=== PATIENT | male | born 1990 | race Caucasian/White ===

== ENCOUNTER 2017-03-07 16:40 | Observation (INO) | payer MEDICAID, SELFPAY ==
--- NOTE | 2017-03-07 17:10 | HP.PCM_ITS ---
Problem List (1) Opiate withdrawal Status: Acute (2) Anxiety Status: Chronic History of Present Illness Date of Admission: 03/07/17 Chief Complaint: heroin withdrawal The patient is a 26 year old M who presents through the [facility] program for acute heroin withdrawal. Patient is abusing IV heroin about 1 g per day, his last use was last night about 7 PM. He has been using on off and on for about 7 years and has been through detox twice before. His current withdrawal symptoms include some nausea with vomiting this morning, diarrhea, anxiety, muscle aches. He has been injecting primarily into his right arm he has no injection site injuries at this time. No fevers or chills. He does admit to occasionally using cocaine. He smokes about a pack a day and is requesting nicotine gum. He does not use benzodiazepines. He does occasionally use alcohol. [] Past Medical History Past Medical History (Chronic Problems): Chronic Problems Anxiety (Chronic) Surgical History: no surgical history Psychiatric History: Anxiety, Depression Lives: With Family Smoking Status: Heavy Smoker (>10/day) Tobacco Use: Cigarettes - 1 pack per day Alcohol: Occasional Drugs: Cocaine, Heroin - *Family History Maternal History Items: No pertinent history Paternal History Items: - - Cirrhosis Review of Systems Constitutional: Denies: Chills, Fever, Weight Change HEENT: Denies: Head Aches, Sinus Congestion, Sinus Drainage Cardiovascular: Denies: Chest Pain, Palpitations Respiratory: Denies: Cough, Shortness of breath at rest, Sputum production Gastrointestinal: Reports: Diarrhea, Nausea, Vomiting. Denies: Abdominal Pain Genitourinary: Denies: Dysuria Musculoskeletal: Reports: - - Generalized muscle aches. Denies: Joint Pain, Joint Tenderness Skin: Denies: Rash, Wounds Neurological: Denies: Numbness, Tingling, Focal weakness Psychiatric: Reports: Anxiety. Denies: Depression, Homicidal Ideations, Suicidal Ideations Hematologic/ Lymphatic: Denies: Easy Bruising, Easy Bleeding VTE Information - Inpt Only VTE Present on Admission: No VTE Mechan Device Prophylaxis: None VTE Pharm Prophylaxis ordered?: No Reason prophylaxis not ordered:: Procedure Not Indicated Patient Problems: Active and Suspected Problems Opiate withdrawal (Acute) - Physical Exam General: Alert, Oriented x3, Cooperative HEENT: Atraumatic, PERRLA, EOMI, Normocephalic Neck: Supple, No JVD, Negative Carotid Bruits Lungs: Clear to auscultation, Normal air movement Cardiovascular: Regular rate, No murmurs Abdomen: Bowel Sounds Present, Soft, Non Tender Extremities: No edema, Capillary Refill Less than 3 Seconds Skin: No rashes, No breakdown Musculoskeletal: No Tenderness to Palpation of Joints or Extremities Neurological: Cranial nerves II-XII grossly intact Psych/Mental Status: Normal Affect, Appropriate, Alert and oriented to time, place, person, mood and affect Assessment/Plan Active and Suspected Problems Opiate withdrawal (Acute) 1. Acute opiate withdrawal-IV heroin abuse, approximately 1 g per day. Last use 7 PM last night. Current withdrawal symptoms include nausea, vomiting, diarrhea, anxiety, and muscle aches. Begin medical stabilization protocol. HepC panel per pt request. No acute injection site injuries on exam today. 2. Co abuse of cocaine, occasional alcohol use 3. Nicotine abuse - Nicotine gum prn 4. Anxiety - continue home meds
[2017-03-07 17:13] VITALS: BMI 23.1
[2017-03-07] MEDS: Buprenorphine HCl 2 MG TAB.SUBL SL (17:30)
[2017-03-07] MEDS: cloNIDine HCl 0.1 MG Tablet 0.2 MG PO (17:30)
[2017-03-07] MEDS: chlordiazePOXIDE 25 MG Capsule PO ×2 (17:30→21:01)
[2017-03-07] MEDS: Acetaminophen 325 MG Tablet 650 MG PO (17:30)
[2017-03-07] MEDS: Dicyclomine 10 MG Capsule 20 MG PO (17:31)
[2017-03-07] MEDS: Methocarbamol 750 MG Tablet PO (17:31)
[2017-03-07 17:34] VITALS: BMI 23.2
[2017-03-07 18:21] VITALS: BP 93/57; PULSE 67; RESP 16; TEMP 36.4
[2017-03-07] MEDS: Loperamide 2 MG Capsule PO (21:00)
[2017-03-07 21:09] VITALS: BP 102/62; PULSE 55; RESP 18; TEMP 37
[2017-03-07] MEDS: Gabapentin 600 MG Tablet PO (21:55)
[2017-03-07] MEDS: Nicotine Polacrilex 2 MG GUM PO (21:59)
[2017-03-08] MEDS: Buprenorphine HCl 2 MG TAB.SUBL SL ×3 (01:30→17:16)
[2017-03-08] MEDS: Methocarbamol 750 MG Tablet PO ×4 (01:35→20:33)
[2017-03-08] MEDS: Carbidopa/Levodopa 25/100 Tablet PO (01:35)
[2017-03-08] MEDS: Nicotine Polacrilex 2 MG GUM PO ×5 (01:37→17:18)
--- NOTE | 2017-03-08 01:42 | NURSING ---
pt refused librium wasted with yeyorn as witness. [facility] did not ask for charge rns badge scan.
--- NOTE | 2017-03-08 01:43 | NURSING ---
witnessed 25mg Librium waste with Pushpa RN. Pt refused med, med rinsed down sink. [facility] did not ask for this RN to scan badge.
[2017-03-08 01:44] VITALS: BP 102/68; PULSE 52; RESP 16; TEMP 36.6
[2017-03-08 05:26] VITALS: BP 98/77; PULSE 48; RESP 16; TEMP 36.6
[2017-03-08] MEDS: Gabapentin 600 MG Tablet PO ×2 (07:38→17:16)
[2017-03-08] MEDS: FLUoxetine 10 MG Capsule 30 MG PO (07:38)
[2017-03-08 07:41] VITALS: BP 105/66; PULSE 57; RESP 16; TEMP 36.6; O2SAT 98
--- NOTE | 2017-03-08 08:03 | PCM.PN.HOSP ---
Patient Problems: Active and Suspected Problems Opiate withdrawal (Acute) Vitals/I&O's: Vital Signs Temp Pulse Resp BP Pulse Ox 98 F 57 16 105/66 98 03/08/17 07:41 03/08/17 07:41 03/08/17 07:41 03/08/17 07:41 03/08/17 07:41 Oxygen Delivery Method Room Air Weight: 75.3 kg Body Mass Index (BMI) 23.1 Intake and Output for Last 24 Hours 03/06/17 03/07/17 03/08/17 23:59 23:59 23:59 Intake Total 550 300 Balance 550 300 Laboratory Results 03/07/17 17:47: Hepatitis C Ab (EIA) Pending, Hepatitis C Comment Pending Current Medications Acetaminophen (Tylenol) 650 mg PO Q4H PRN PRN PRN Reason: Temp>99.1F Last Admin: 03/07/17 17:30 Dose: 650 mg Buprenorphine HCl (Buprenorphine Hcl) 4 mg SL Q8H BHARTI PRN Reason: Taper Stop: 03/10/17 20:59 Last Admin: 03/08/17 01:30 Dose: 4 mg Carbidopa/Levodopa (Sinemet) 1 tablet PO Q8H PRN PRN PRN Reason: RESTLESSNESS Last Admin: 03/08/17 01:35 Dose: 1 tablet Chlordiazepoxide (Librium) 25 mg PO Q4 BHARTI Stop: 03/08/17 14:01 Last Admin: 03/08/17 07:39 Dose: Not Given Chlordiazepoxide (Librium) 25 mg PO Q6H PRN PRN PRN Reason: Mod-Sev Anxiety (score 2-3/3) Clonidine (Catapres) 0.1 mg PO Q2H PRN PRN Reason: Hot/Cold Sweats or Anxiety Dicyclomine HCl (Bentyl) 20 mg PO Q6H PRN PRN PRN Reason: Abdomnial Discomfort Last Admin: 03/07/17 17:31 Dose: 20 mg Fluoxetine HCl (Prozac) 30 mg PO DAILY [facility] Last Admin: 03/08/17 07:38 Dose: 30 mg Gabapentin (Neurontin) 600 mg PO BIDCM [facility] Last Admin: 03/08/17 07:38 Dose: 600 mg Hydroxyzine Pamoate (Vistaril) 50 mg PO Q6H PRN PRN PRN Reason: Mild Anxiety (score 1/3) Ibuprofen (Motrin) 800 mg PO Q8H PRN PRN PRN Reason: Mild-Moderate Pain (1-5/10) Loperamide HCl (Imodium) 2 mg PO Q4H PRN PRN PRN Reason: LOOSE STOOLS Last Admin: 03/07/17 21:00 Dose: 2 mg Methocarbamol (Methocarbamol) 750 mg PO 4X/DAY PRN PRN Reason: Muscle Aches Last Admin: 03/08/17 07:38 Dose: 750 mg Nicotine Polacrilex (Rugby Nicotine (Bkc)) 2 mg PO Q2H PRN PRN PRN Reason: Nicotine Craving Last Admin: 03/08/17 01:37 Dose: 2 mg Nutritional Formula (Lactose Free) (Ensure Enlive) 120 ml PO 4X/DAY BHARTI Last Admin: 03/07/17 21:01 Dose: 120 ml Ondansetron HCl (Zofran Odt) 4 mg PO Q6H PRN PRN PRN Reason: NAUSEA Quetiapine Fumarate (Seroquel) 25 mg PO Q6H PRN PRN PRN Reason: Moderate Anxiety (score 2/3) Assessment/Plan Active and Suspected Problems Opiate withdrawal (Acute)
--- NOTE | 2017-03-08 13:19 | CHAPLAIN ---
Type of Pastoral Visit _x__ Initial Visit ___ Follow-up Visit ___ On-call Visit ___ General Patient Visit ___ Spiritual Assessment ___ Family Conference ___ Bereavement ___ Rapid Response ___ Code Blue ___ Other (describe below) Pastoral Care Referral From _x__ Patient ___ Family ___ Nurse ___ Physician ___ Wheel Mill Operator ___ Polisher Balance Screwhead ___ Other (describe below) Sacrament/Intervention _x__ Active listening ___ Anointing ___ Cheondoism ___ Bereavement ___ Communion _x__ [place] exploration ___ _x__ Life review _x__ Prayer ___ Reconciliation ___ Sacrament of Sick _x__ Supportive presence ___ Wedding ___ Other (describe below) Pastoral Comments patient welcomed visit of physician industrial; pt speaks of this as yet another attempt at sobriety; pt offers his own assessment that he needs to have God in his life for him to be successful; pt has had AA before and believes in the Higher Power but asks questions about how to be connected to God; pt has questions about rehab and expresses openness to support; pt has feelings of disappointment with self and having offended his family
--- NOTE | 2017-03-08 13:51 | PCM.PROGNOTE ---
<Jac Núñez - Last Filed: 03/08/17 13:51> Patient Problems: Active and Suspected Problems Opiate withdrawal (Acute) Subjective: Patient reports that his symptoms are well controlled. No vomiting or diarrhea today. He still has some restless legs, generalized muscle aches, and mild anxiety however these have improved since presentation. No fevers or chills. No headaches dizziness lightheadedness or heart racing or palpitations. - Physical Exam General: Alert, Oriented x3, Cooperative HEENT: Atraumatic, PERRLA, EOMI, Normocephalic Neck: Supple, No JVD, Negative Carotid Bruits Lungs: Clear to auscultation, Normal air movement Cardiovascular: Regular rate, No murmurs Abdomen: Bowel Sounds Present, Soft, Non Tender Extremities: No edema, Capillary Refill Less than 3 Seconds Skin: No rashes, No breakdown Musculoskeletal: No Tenderness to Palpation of Joints or Extremities Neurological: Cranial nerves II-XII grossly intact Psych/Mental Status: Normal Affect, Appropriate, Alert and oriented to time, place, person, mood and affect Vital Signs Temp Pulse Resp BP Pulse Ox 98 F 57 16 105/66 98 03/08/17 07:41 03/08/17 07:41 03/08/17 07:41 03/08/17 07:41 03/08/17 07:41 Oxygen Delivery Method Room Air Weight: 75.3 kg Body Mass Index (BMI) 23.1 Intake and Output for Last 24 Hours 03/06/17 03/07/17 03/08/17 23:59 23:59 23:59 Intake Total 550 540 Balance 550 540 Laboratory Tests Past 24 Hrs 03/07/17 17:47 Hepatitis C Ab (EIA) Pending Hepatitis C Comment Pending Assessment/Plan Active and Suspected Problems Opiate withdrawal (Acute) 1. Acute opiate withdrawal-IV heroin abuse. Symptoms are well controlled, current symptoms include restless legs, generalized muscle aches, mild anxiety. Hepatitis C panel drawn per patient request and is pending. 2. Co abuse of cocaine, occasional alcohol use 3. Nicotine abuse - Nicotine gum prn 4. Anxiety - continue home meds <Paintsil,[place] - Last Filed: 03/08/17 14:06> - Physical Exam Vital Signs Temp Pulse Resp BP Pulse Ox 98.2 F 56 18 105/66 98 03/08/17 14:00 03/08/17 14:00 03/08/17 14:00 03/08/17 07:41 03/08/17 07:41 Oxygen Delivery Method Room Air Weight: 75.3 kg Body Mass Index (BMI) 23.1 Intake and Output for Last 24 Hours 03/06/17 03/07/17 03/08/17 23:59 23:59 23:59 Intake Total 550 540 Balance 550 540 Laboratory Tests Past 24 Hrs 03/07/17 17:47 Hepatitis C Ab (EIA) Pending Hepatitis C Comment Pending Assessment/Plan Patient seen and examined independently. Stable vitals. C/o cravings. No nausea or vomiting Will continue per [facility] protocol.
[2017-03-08 14:00] VITALS: BP 114/72; PULSE 56; RESP 18; TEMP 36.8
[2017-03-08] MEDS: chlordiazePOXIDE 25 MG Capsule PO (14:12)
[2017-03-08] MEDS: Dicyclomine 10 MG Capsule 20 MG PO (14:12)
[2017-03-08] MEDS: cloNIDine HCl 0.1 MG Tablet PO (14:12)
[2017-03-08 17:12] VITALS: BP 102/65; PULSE 52; RESP 18; TEMP 36.9
[2017-03-08] MEDS: Ibuprofen 400 MG Tablet 800 MG PO (17:16)
[2017-03-08 20:51] VITALS: BP 101/57; PULSE 52; RESP 16; TEMP 36.6
[2017-03-09] MEDS: Buprenorphine HCl 2 MG TAB.SUBL SL ×3 (01:20→21:15)
[2017-03-09 01:26] VITALS: BP 101/63; PULSE 54; RESP 16; TEMP 36.6
[2017-03-09 06:49] LABS: Absolute Lymphocyte Count 2.85 X10^3/ul (0.83-4.51); Absolute Neutrophil Count 1.2 X10^3/uL (2.0-7.7); Basophil# 0.02 X10^3/uL; Basophil% 0.4 % (0-1); Eosinophil# 0.15 X10^3/uL; Eosinophils% 3.2 % (0-5); Hematocrit 41.3 % (40-54); Hemoglobin 13.7 g/dl (13.0-16.5); Lymphocyte # 2.85 X10^3/ul (4.0); Lymphocyte % 61.3 % (19-41); Mean Corp Hgb Conc 33.2 g/gl (32-36); Mean Corpuscular Hgb 28.5 pg (27.0-32.0); Mean Platelet Vol. 10.4 fl (6.2-12.0); Monocyte# 0.42 X10^3/uL; Neutrophil # 1.21 X10^3/uL (2.7-7.7); Neutrophil % 26.1 % (47-70); Platelet Count 187 K/mm3 (150-450); RBC Distribution Width CV 13.1 % (11.6-14.6); RBC Distribution Width SD 41.1 fl (35.1-43.9); White Blood Count 4.7 K/mm3 (4.4-11.0)
[2017-03-09 06:55] LABS: POSITIVE COUNT NO; POSITIVE DIFFERENTIAL NO; POSITIVE MORPHOLOGY NO
[2017-03-09 07:08] LABS: Anion Gap 4 (5-15); BUN 15 mg/dL (7-18); BUN/Creat Ratio 16.8 RATIO (10-20); Calcium,Total 8.5 mg/dL (8.5-10.1); Chloride 103 mmol/L (98-107); Creatinine, Serum 0.89 mg/dL (0.70-1.30); EST Glomerular Filtration Rate 109 mL/min (>60); Est Glom Filt Rate - Afr Amer 132 mL/min (>60); Estimated Creatinine Clearance 133.96 ml/min; Glucose 87 mg/dL (70-110); Potassium 4.3 mmol/L (3.5-5.1); Sodium Level 139 mmol/L (136-145)
[2017-03-09] MEDS: Nicotine Polacrilex 2 MG GUM PO ×5 (08:07→21:19)
[2017-03-09] MEDS: Gabapentin 600 MG Tablet PO ×2 (08:07→17:05)
[2017-03-09] MEDS: FLUoxetine 10 MG Capsule 30 MG PO (08:09)
[2017-03-09 08:17] VITALS: BP 102/72; PULSE 80; RESP 16; TEMP 36.5; O2SAT 98
[2017-03-09 09:40] LABS: Hep C Antibodies <0.1 s/co ratio (0.0-0.9)
[2017-03-09] MEDS: Methocarbamol 750 MG Tablet PO ×2 (11:21→17:05)
[2017-03-09 11:23] VITALS: BP 104/56; PULSE 63; RESP 16; TEMP 36.8; O2SAT 97
--- NOTE | 2017-03-09 12:36 | PCM.PROGNOTE ---
<Jac Núñez - Last Filed: 03/09/17 12:36> Patient Problems: Active and Suspected Problems Opiate withdrawal (Acute) Subjective: Pt resting comfortably in bed. Only withdrawal sx at this point is BL muscle aches in legs - mild. No further N/V/anxiety/back pain. No racing or skipped beats. Planning DC tomorrow and follow up with [facility], possibly vivitrol as o/p. - Physical Exam General: Alert, Oriented x3, Cooperative HEENT: Atraumatic, PERRLA, EOMI, Normocephalic Neck: Supple, No JVD, Negative Carotid Bruits Lungs: Clear to auscultation, Normal air movement Cardiovascular: Regular rate, No murmurs Abdomen: Bowel Sounds Present, Soft, Non Tender Extremities: No edema, Capillary Refill Less than 3 Seconds Skin: No rashes, No breakdown Musculoskeletal: No Tenderness to Palpation of Joints or Extremities Neurological: Cranial nerves II-XII grossly intact Psych/Mental Status: Normal Affect, Appropriate Vital Signs Temp Pulse Resp BP Pulse Ox 98.3 F 63 16 104/56 97 03/09/17 11:23 03/09/17 11:23 03/09/17 11:23 03/09/17 11:23 03/09/17 11:23 Oxygen Delivery Method Room Air Weight: 75.3 kg Body Mass Index (BMI) 23.1 Intake and Output for Last 24 Hours 03/07/17 03/08/17 03/09/17 23:59 23:59 23:59 Intake Total 550 1040 350 Balance 550 1040 350 Laboratory Tests Past 24 Hrs 03/07/17 03/09/17 03/09/17 17:47 06:36 06:36 WBC 4.7 RBC 4.80 Hgb 13.7 Hct 41.3 MCV 86.0 MCH 28.5 MCHC 33.2 RDW 13.1 RDW Differential 41.1 Plt Count 187 MPV 10.4 Immature Gran % (Auto) 0.000 Neut % (Auto) 26.1 L Lymph % (Auto) 61.3 H Whitley % (Auto) 9.0 Eos % (Auto) 3.2 Baso % (Auto) 0.4 Absolute Neuts (auto) 1.2 L Absolute Lymphs (auto) 2.85 Total Counted Not Reportable Sodium 139 Potassium 4.3 Chloride 103 Carbon Dioxide 32.0 Anion Gap 4 L BUN 15 Creatinine 0.89 Estim Creat Clear Calc 133.96 Est GFR (MDRD) Af Amer 132 Est GFR (MDRD) Non-Af 109 BUN/Creatinine Ratio 16.8 Glucose 87 Calcium 8.5 Hepatitis C Ab (EIA) <0.1 Assessment/Plan Active and Suspected Problems Opiate withdrawal (Acute) 1. Acute opiate withdrawal-IV heroin abuse. Symptoms are well controlled, current symptoms include leg muscle aches. Hepatitis C panel drawn per patient request and is pending. 2. Co abuse of cocaine, occasional alcohol use 3. Nicotine abuse - Nicotine gum prn 4. Anxiety - continue home meds DC planning: DC tomorrow, [facility] for counselling, requesting information for vivitrol. <Paintsil,[place] - Last Filed: 03/09/17 15:50> - Physical Exam Vital Signs Temp Pulse Resp BP Pulse Ox 98.3 F 63 16 104/56 97 03/09/17 11:23 03/09/17 11:23 03/09/17 11:23 03/09/17 11:23 03/09/17 11:23 Oxygen Delivery Method Room Air Weight: 75.3 kg Body Mass Index (BMI) 23.1 Intake and Output for Last 24 Hours 03/07/17 03/08/17 03/09/17 23:59 23:59 23:59 Intake Total 550 1040 350 Balance 550 1040 350 Laboratory Tests Past 24 Hrs 03/07/17 03/09/17 03/09/17 17:47 06:36 06:36 WBC 4.7 RBC 4.80 Hgb 13.7 Hct 41.3 MCV 86.0 MCH 28.5 MCHC 33.2 RDW 13.1 RDW Differential 41.1 Plt Count 187 MPV 10.4 Immature Gran % (Auto) 0.000 Neut % (Auto) 26.1 L Lymph % (Auto) 61.3 H Whitley % (Auto) 9.0 Eos % (Auto) 3.2 Baso % (Auto) 0.4 Absolute Neuts (auto) 1.2 L Absolute Lymphs (auto) 2.85 Total Counted Not Reportable Sodium 139 Potassium 4.3 Chloride 103 Carbon Dioxide 32.0 Anion Gap 4 L BUN 15 Creatinine 0.89 Estim Creat Clear Calc 133.96 Est GFR (MDRD) Af Amer 132 Est GFR (MDRD) Non-Af 109 BUN/Creatinine Ratio 16.8 Glucose 87 Calcium 8.5 Hepatitis C Ab (EIA) <0.1 Hepatitis C Comment Not Reportable Assessment/Plan Patient seen and examined. No new complains apart from cramps in his legs. Exam findings as above Continue current treatment. Will be discharged in am
[2017-03-09] MEDS: chlordiazePOXIDE 25 MG Capsule PO (14:25)
[2017-03-09 17:07] VITALS: BP 111/68; PULSE 50; RESP 16; TEMP 36.8; O2SAT 98
[2017-03-09 21:13] VITALS: BP 120/69; PULSE 63; RESP 16; TEMP 36.9
[2017-03-10 08:53] VITALS: BP 110/80; PULSE 57; RESP 18; TEMP 36.3; O2SAT 100
[2017-03-10] MEDS: Buprenorphine HCl 2 MG TAB.SUBL SL (09:04)
[2017-03-10] MEDS: Methocarbamol 750 MG Tablet PO (09:04)
[2017-03-10] MEDS: Gabapentin 600 MG Tablet PO (09:05)
[2017-03-10] MEDS: FLUoxetine 10 MG Capsule 30 MG PO (09:05)
[2017-03-10] MEDS: Nicotine Polacrilex 2 MG GUM PO (09:10)
[2017-03-10 10:00] VITALS: BP 110/80; PULSE 57; RESP 18; TEMP 36.3
--- NOTE | 2017-03-10 10:07 | PCM.DC ---
- Discharge Diagnoses Current Active Problems: Current Active and Chronic Problems Opiate withdrawal (Acute) Anxiety (Chronic) You will use the following diet at home:: No restrictions Your food should be the consistency of: Regular Your liquids should be the consistency of: Regular/Thin Discharge Activity: Return to Normal Activity Allergies/Adverse Reactions: Allergies Penicillins Adverse Reaction (Verified 03/07/17 17:03) Unknown Medications to take at Discharge Fluoxetine [Prozac] 30 mg PO DAILY 03/07/17 Gabapentin [Neurontin] 600 mg PO BID 03/07/17 Primary Care Physician: Care Physician,No Primary [Primary Care Provider] - Please follow up with your Primary Care Physician in: 1-2 weeks Proposed Discharge Date: 03/10/17
--- NOTE | 2017-03-10 10:13 | DS.PCM_ITS ---
Discharge Date and Diagnosis - Problem List Patient Problems: Active and Suspected Problems Opiate withdrawal (Acute) Date of Admission: 03/07/17 Date of Discharge: 03/10/17 - Primary Discharge Diagnosis Active and Suspected Problems Opiate withdrawal (Acute) Nicotine abuse Cocaine abuse Anxiety / Depression - Secondary Discharge Diagnosis Chronic Problems Anxiety (Chronic) Hospital Course and Treatment Operations: None Procedures: None Summary of Care Provided: Physical exam on day of discharge: General: Resting comfortably NAD Psych: A/Ox3 normal affect HEENT: [place] AT MN Neck: Supple NT CV: RRR no m/t/r/g/h Resp: CTA Abd: [id number] Soft NT no guarding or rigidity Ext: DP2+= no edema Skin: W/D normal turgor Lymph/Heme: No active bleeding or adenopathy Neuro: CN2-12 intact Hospital course: The patient is a 26 year old M IV heroin abuser who also co-abuses cocaine who was admitted to the hospital through [facility] acute opiate withdrawal and medical stabilization. He was treated following the medical stabilization protocol and his symptoms were well-controlled during his stay here. He requested his hepatitis C panel be drawn while here which was done and it was found to be negative. He also smokes a pack per day and was stable with nicotine gum as needed while here. He has a history of anxiety and his home medications were provided, anxiety was well controlled while here. He plans to pursue outpatient Suboxone or Subutex therapy. He had no complaints by the time of discharge, and he was discharged home in stable condition. Discharge Diet: No Restrictions Discharge Activity: Return to Normal Activity Home Medications: Medications to take at Discharge Fluoxetine [Prozac] 30 mg PO DAILY 03/07/17 Gabapentin [Neurontin] 600 mg PO BID 03/07/17 Primary Care Physician: Care Physician,No Primary [Primary Care Provider] - Please follow up with your Primary Care Physician in: 1-2 weeks Disposition: Home Minutes spent on discharge:: 35 Patient Condition:: Stable Meaningful Use Info Meaningful Use Diagnoses (Choose all that apply): None applicable
[2017-03-10 11:39] VITALS: BP 117/75; PULSE 69; RESP 16; TEMP 36.9
== END 2017-03-10 11:55 | disposition home or self-care (01) | DRG 773 ==
LOC: MS2 08-05 08:46
PROVIDERS: Physician Assistant; Admitting Provider Internal Medicine; Visit Provider Internal Medicine
DX: F11.23 Opioid dependence with withdrawal (principal); F17.210 Nicotine dependence, cigarettes, uncomplicated; F41.9 Anxiety disorder, unspecified; F14.10 Cocaine abuse, uncomplicated; F32.9 Major depressive disorder, single episode, unspecified; Z79.899 Other long term (current) drug therapy
CPT/HCPCS: 36415; 80048; 85025; 86803; 97802; 99218; 99406; G0378; G0379